=== PATIENT | male | born 1975 | race Caucasian/White ===

== ENCOUNTER 2023-11-18 06:09 | Emergency (ER) | payer MEDICAID ==
[~2023-11-18] VITALS: Ht 175.3 cm; Wt 70.0 kg
[2023-11-18 06:12] VITALS: O2SAT 99
[2023-11-18] MEDS: KETOROLAC 30MG/ML VIAL IV ONE (08:03)
[2023-11-18 09:17] LABS: CHLORIDE 108 mEq/L (98-107); POTASSIUM 3.9 mEq/L (3.5-5.1); SODIUM 139 mEq/L (136-145)
[2023-11-18 09:18] LABS: CARBON DIOXIDE 27 mEq/L (21-32)
[2023-11-18 09:22] LABS: BASOPHILS % 0.3 % (0.0-2.0); EOSINOPHILS % 0.1 % (0.0-5.0); HEMATOCRIT. 42.6 % (42.0-52.0); HEMOGLOBIN. 14.8 g/dL (14.0-18.0); LYMPHOCYTES % 7.6 % (20.0-50.0); MEAN CORPUSCULAR HEMOGLOBIN 31.5 pg (28.0-32.0); MEAN CORPUSCULAR HGB CONC 34.6 g/dL (31.0-37.0); MEAN CORPUSCULAR VOLUME 90.8 fL (80.0-94.0); MEAN PLATELET VOLUME 10.1 fl (7.4-10.4); MONOCYTES % 2.6 % (2.0-8.0); NEUTROPHILS % 89.4 % (40.0-76.0); PLATELET 213 x1000/uL (130-400); RED BLOOD CELL COUNT 4.69 mill/uL (4.7-6.1); RED CELL DISTRIBUTION WIDTH 12.8 % (11.6-14.6); WHITE BLOOD COUNT 8.4 x1000/uL (4.5-11.0)
[2023-11-18 09:23] LABS: CREATININE 0.8 mg/dL (0.6-1.3); GLUCOSE 112 mg/dL (70-105); UREA NITROGEN BLOOD 16 mg/dL (9-23)
[2023-11-18] MEDS ORDERED: METR-167 MT (10:44)
[2023-11-18] MEDS ORDERED: AMOX1TAB16 MT (10:44)
[2023-11-18] MEDS ORDERED: DICY20TA2 MT (10:44)
[2023-11-18 10:49] VITALS: BP 141/75; PULSE 86; RESP 17; TEMP 98.2
[2023-11-18] MEDS: METRONIDAZOLE 500MG TABLET PO ONE (10:59)
[2023-11-18] MEDS: AMOXICILLIN/POTASSIUM CLAVULANATE 875/125MG TAB PO ONE (10:59)
[2023-11-18] MEDS ORDERED: IOHEXOL-300 100 ML BOTTLE ONE (17:43)
== END 2023-11-18 15:14 | disposition home or self-care (01) ==
LOC: ER 06:09
DX: K57.92 Diverticulitis of intestine, part unspecified, without perforation or abscess without bleeding (principal); R11.0 Nausea
CPT/HCPCS: 80048; 83690; 85025; 36415; 74177; 96374; 99285; Q9967; J1885; Z7610